=== PATIENT | female | born 1960 | race Caucasian/White ===

== ENCOUNTER 2016-09-27 15:14 | Inpatient (IN) | payer MEDICAID, OTHER ==
[~2016-09-27] VITALS: Ht 162.6 cm; Wt 73.0 kg
[~2016-09-27 15:14] MED LIST changes: +ADENOSINE 6 MG/2 ML VIAL ONE; -ASPI81TA2 PO; -ASPIRIN 81 MG TAB.CHEW PO SCH; -LISI-607 PO; -METO50TA7 PO; -METOPROLOL SUCCINATE 50 MG TAB.SR.24H PO SCH; -VANC1VIA2 IV; -VANCOMYCIN 1 GM VIAL IV SCH; -ZOLPIDEM TARTRATE 5 MG TABLET PO ONE
[2016-09-27] MEDS ORDERED: IV SET PRIMARY PUMP SET 1 EA INFUS.SET MC ONE (15:15)
[2016-09-27] MEDS ORDERED: IV NS 0.9% 1,000 ML ONE (15:15)
[2016-09-27] MEDS ORDERED: METOPROLOL TARTRATE INJ 5 MG/5 ML AMPUL ONE (15:20)
[2016-09-27] MEDS ORDERED: METOPROLOL TARTRATE 25 MG TABLET ONE (15:27)
[2016-09-27] MEDS ORDERED: METOPROLOL SUCCINATE 25 MG TAB.SR.24H PO ONE (15:30)
[2016-09-27] MEDS ORDERED: METOPROLOL TARTRATE INJ 5 MG/5 ML AMPUL IV ONE ×2 (15:30)
[2016-09-27] MEDS ORDERED: LISI-607 PO (15:38)
[2016-09-27] MEDS ORDERED: ASPI81TA2 PO (15:38)
[2016-09-27] MEDS ORDERED: VANC1VIA2 IV (15:38)
[2016-09-27 16:30] VITALS: BP 119/83
[2016-09-27 20:00] VITALS: BP 117/63
[2016-09-28] VITALS: BP 113/77
[2016-09-28 04:00] VITALS: BP 124/71
[2016-09-28 04:32] VITALS: BP 124/71
[2016-09-28 08:00] VITALS: BP 125/74
[2016-09-28] MEDS ORDERED: METO50TA7 PO (09:24)
[2016-09-28] MEDS ORDERED: METRONIDAZOLE 500MG/ NS 100ML 500 MG in PREMIX 1 EA IV SCH (09:30)
[2016-09-28] MEDS ORDERED: VANCOMYCIN 1 GM VIAL IV SCH (09:30)
[2016-09-28] MEDS ORDERED: ASPIRIN 81 MG TAB.CHEW PO SCH (09:37)
[2016-09-28] MEDS ORDERED: VANCOMYCIN 1.5 GM in IV D5W 500 ML IV SCH (10:00)
[2016-09-28 12:00] VITALS: BP 121/72
== END 2016-09-28 14:00 | disposition home or self-care (01) | DRG 201 ==
LOC: ER 16:00 → TELE1 17:06
PROVIDERS: ADMIT Internal Medicine; ATTEND Internal Medicine
DX: I47.1 Supraventricular tachycardia (principal); I10 Essential (primary) hypertension; Z90.11 Acquired absence of right breast and nipple; Z85.3 Personal history of malignant neoplasm of breast
CPT/HCPCS: 87081-TC; A4216; A4606; J0153; J3370; J3490; J7030; J7060; Z7610

== ENCOUNTER → 2016-09-27 | Emergency (ER) | payer MEDICAID ==
[~2016-09-27] VITALS: Ht 165.1 cm; Wt 73.0 kg
[~2016-09-27] MED LIST: ASPI81TA2 PO; ASPIRIN 81 MG TAB.CHEW PO SCH; CYCL5TAB PO; LISI-607 PO; METO50TA7 PO; METOPROLOL SUCCINATE 50 MG TAB.SR.24H PO SCH; VANC1VIA2 IV; VANCOMYCIN 1 GM VIAL IV SCH; ZOLPIDEM TARTRATE 5 MG TABLET PO ONE
[2016-09-27 14:07] LABS: CREATININE 0.6 mg/dL (0.6-1.3); POTASSIUM 3.6 mmol/L (3.5-5.1)
[2016-09-27 14:15] LABS: INR 0.89 (0.87-1.13); PROTHROMBIN TIME 9.3 SECS (9.5-12.7)
[2016-09-27 14:16] LABS: TROPONIN I 0.025 ng/mL (0.00-0.056)
[2016-09-27 14:37] VITALS: BP 130/78
[2016-09-27 14:55] LABS: BASOPHILS % (AUTO) 0.4 % (0.0-2.0); DIFF TOTAL % 100 %; EOSINOPHILS # (AUTO) 0.1 /CMM (0.0-0.7); EOSINOPHILS % (AUTO) 1.5 % (0.0-6.0); HEMATOCRIT 39 % (33-45); HEMOGLOBIN 13.1 g/dL (11.5-14.8); LYMPHOCYTES # (AUTO) 1.8 /CMM (0.8-4.8); LYMPHOCYTES % (AUTO) 30.7 % (20.0-44.0); MEAN CORPUSCULAR HEMOGLOBIN 31 PG (26.0-33.0); MEAN CORPUSCULAR HGB CONC 34 g/dl (31.0-36.0); MEAN CORPUSCULAR VOLUME 91 fL (82-100); MONOCYTES # (AUTO) 0.3 /CMM (0.1-1.30); MONOCYTES % (AUTO) 4.6 % (2.0-12.0); NEUTROPHILS # (AUTO) 3.6 /CMM (1.8-8.9); NEUTROPHILS % (AUTO) 62.8 % (43.0-81.0); PLATELET COUNT (AUTO) 364 /CMM (150-450); RED BLOOD CELL COUNT(AUTO) 4.27 MIL/uL (4.0-5.2); WHITE BLOOD COUNT (AUTO) 5.8 K/uL (4.3-11.0)
== END | disposition home or self-care (01) ==
LOC: ER 13:29 → MEDSG1 14:39 → ER 14:39 → UNDOADMIN 14:39
DX: I47.1 Supraventricular tachycardia (principal); I10 Essential (primary) hypertension; Z85.3 Personal history of malignant neoplasm of breast
CPT/HCPCS: 36415; 71010; 80048; 83735; 84443; 84484; 85025; 85730; 93005; 93307; 99285; A4606; Z7610; J3370

== ENCOUNTER 2019-06-15 08:29 | Emergency (ER) | payer OTHER ==
[~2019-06-15] VITALS: Ht 162.6 cm; Wt 74.4 kg
[~2019-06-15 08:29] MED LIST changes: -ADENOSINE 6 MG/2 ML VIAL ONE; +ASPI-1169 PO; -CYCL5TAB PO; +METO50TA7 PO; +VANC1VIA2 IV
--- NOTE | 2019-06-15 08:40 | NUR ---
MANDO, C/O ABD PAIN x 3 DAYS, +NAUSEA, -DIARRHEA. PATIENT A/OX4, BREATHING EVEN ANDUNLABORED, NO SOB NOTED, SON AT BEDSIDE. PER PATIENT, PAIN WAS WORSE YESTERDAY THAN TODAY. PATIENT CHANGED INTO GOWN, ATTACHED TO THE MONITOR.
[2019-06-15] MEDS ORDERED: ONDANSETRON HCL/PF 4 MG/2 ML VIAL ONE (08:55)
[2019-06-15] MEDS ORDERED: KETOROLAC TROMETHAMINE 15 MG/ML VIAL ONE (08:55)
[2019-06-15] MEDS ORDERED: ONDANSETRON HCL/PF 4 MG/2 ML VIAL IVP ONE (09:00)
[2019-06-15] MEDS ORDERED: IV NS 0.9% 500 ML BAG IV ONE (09:00)
[2019-06-15] MEDS ORDERED: KETOROLAC TROMETHAMINE INJ 30 MG/ML VIAL IV ONE (09:00)
[2019-06-15 09:02] LABS: BASOPHILS % (AUTO) 0.7 % (0.0-2.0); HEMATOCRIT 43 % (33-45); HEMOGLOBIN 14.3 g/dL (11.5-14.8); LYMPHOCYTES # (AUTO) 2.3 /CMM (0.8-4.8); LYMPHOCYTES % (AUTO) 40.7 % (20.0-44.0); MEAN CORPUSCULAR HGB CONC 33 g/dl (31.0-36.0); MEAN CORPUSCULAR VOLUME 96 fL (82-100); MONOCYTES # (AUTO) 0.4 /CMM (0.1-1.30); MONOCYTES % (AUTO) 7.3 % (2.0-12.0); NEUTROPHILS # (AUTO) 2.8 /CMM (1.8-8.9); NEUTROPHILS % (AUTO) 50.3 % (43.0-81.0); PLATELET COUNT (AUTO) 267 /CMM (150-450); RED BLOOD CELL COUNT(AUTO) 4.51 MIL/uL (4.0-5.2); WHITE BLOOD COUNT (AUTO) 5.6 K/uL (4.3-11.0)
[2019-06-15 09:13] LABS: CALCIUM, SERUM 9.1 mg/dL (8.5-10.1); CREATININE 0.6 mg/dL (0.6-1.3); POTASSIUM 4.2 mmol/L (3.5-5.1)
[2019-06-15 09:19] LABS: ALBUMIN 4.2 g/dL (3.4-5.0); BILIRUBIN,DIRECT 0.1 mg/dL (0.0-0.2); BILIRUBIN,TOTAL 0.3 mg/dL (0.2-1.0); TOTAL PROTEIN, SERUM 7.9 g/dL (6.4-8.2)
--- NOTE | 2019-06-15 09:54 | NUR ---
Ambulatory with a steady gait. IV removed. Catheter intact and site benign. Pressure and 4x4 applied to site. No bleeding noted.Patient discharged to home in stable condition. Written and verbal after care instructions given. Patient verbalizes understanding of instruction.
[2019-06-15 09:55] VITALS: BP 160/92
== END 2019-06-15 09:55 | disposition home or self-care (01) ==
LOC: ER 08:33
DX: K82.8 Other specified diseases of gallbladder (principal); I10 Essential (primary) hypertension; Z90.11 Acquired absence of right breast and nipple; Z79.82 Long term (current) use of aspirin; Z79.899 Other long term (current) drug therapy
CPT/HCPCS: 36415; 76705; 80048; 80076; 83690; 85025; 96374; 96375; 99284; J1885; J2405; J7040; J7030

== ENCOUNTER 2021-03-17 08:01 | Emergency (ER) | payer MEDICAID, OTHER ==
[~2021-03-17] VITALS: Ht 162.6 cm; Wt 77.1 kg
--- NOTE | 2021-03-17 08:15 | NUR ---
BIBS FOR C/O UPPER ABDOMINAL AND LEFT FLANK PAIN X 1 WEEK. RATES PAIN 6/10. ABDOMNE SOFT AND NON-DISTENDED. RESPIRATION REGULAR AND UNLABORED. WILL CONTINUE TO MONITOR THE PATIENT.
[2021-03-17] MEDS ORDERED: OMEP20CA15 PO (08:39)
[2021-03-17] MEDS ORDERED: LISI-768 PO (08:39)
[2021-03-17] MEDS ORDERED: METO25TA4 PO (08:39)
[2021-03-17 08:40] LABS: BASOPHILS % (AUTO) 0.4 % (0.0-2.0); CALCIUM, SERUM 9.2 mg/dL (8.5-10.1); CREATININE 0.7 mg/dL (0.6-1.3); EOSINOPHILS % (AUTO) 0.8 % (0.0-6.0); HEMATOCRIT 42 % (33-45); MEAN CORPUSCULAR HGB CONC 33 g/dl (31.0-36.0); MEAN CORPUSCULAR VOLUME 96 fL (82-100); MONOCYTES # (AUTO) 0.3 K/uL (0.1-1.30); MONOCYTES % (AUTO) 6.4 % (2.0-12.0); NEUTROPHILS # (AUTO) 2.9 K/uL (1.8-8.9); NEUTROPHILS % (AUTO) 55.4 % (43.0-81.0); PLATELET COUNT (AUTO) 265 K/uL (150-450); POTASSIUM 4.1 mmol/L (3.5-5.1); WHITE BLOOD COUNT (AUTO) 5.3 K/uL (4.3-11.0)
[2021-03-17] MEDS ORDERED: ATOR10TA PO (08:40)
[2021-03-17] MEDS ORDERED: DULO30CA52 PO (08:40)
[2021-03-17] MEDS ORDERED: LIPA1CAP15 PO (08:40)
[2021-03-17] MEDS ORDERED: ANAS1TAB50 PO (08:40)
[2021-03-17 08:46] LABS: ALBUMIN 4.4 g/dL (3.4-5.0); BILIRUBIN,DIRECT 0.1 mg/dL (0.0-0.2); BILIRUBIN,TOTAL 0.4 mg/dL (0.2-1.0)
[2021-03-17 08:53] LABS: BILIRUBIN,URINE NEGATIVE (NEGATIVE); COLOR,URINE YELLOW (YELLOW); LEUKOCYTE ESTERASE ,URINE NEGATIVE (NEGATIVE); NITRITE, URINE NEGATIVE (NEGATIVE); PROTEIN,URINE NEGATIVE (NEGATIVE); UGLUCOSE NEGATIVE (NEGATIVE); UROBILINOGEN,URINE 0.2 EU/dL (0.2)
[2021-03-17] MEDS ORDERED: MAG HYDROX/AL HYDROX/SIMETH 30 ML UDC PO ONE (09:30)
[2021-03-17] MEDS ORDERED: FAMOTIDINE/PF INJ 20 MG/2 ML VIAL IV ONE ×2 (09:30→10:06)
[2021-03-17] MEDS ORDERED: IV NS 0.9% 1,000 ML BAG IV ONE (09:30)
[2021-03-17] MEDS ORDERED: LIDOCAINE VISCOUS 2% UD 15 ML UDC MM ONE (09:30)
[2021-03-17] MEDS ORDERED: ONDANSETRON HCL/PF 4 MG/2 ML VIAL IVP ONE (09:30)
--- NOTE | 2021-03-17 09:32 | NUR ---
[employer] TECHNICIAN AT THE BEDSIDE
[2021-03-17 09:44] LABS: BACTERIA,URINE Rare /HPF (None Seen); RBC,URINE 0-2 /HPF (0-2); SQUAMOUS EPITHELIAL CELL,UR Few /HPF (None Seen); WBC,URINE 0-2 /HPF (0-3)
[2021-03-17] MEDS ORDERED: ONDANSETRON HCL/PF 4 MG/2 ML VIAL ONE (10:06)
[2021-03-17] MEDS ORDERED: LIDOCAINE VISCOUS 2% UD 15 ML UDC ONE (10:06)
[2021-03-17] MEDS ORDERED: MAG HYDROX/AL HYDROX/SIMETH 30 ML UDC ONE (10:06)
[2021-03-17] MEDS ORDERED: ONDA4TAB5 PO (10:55)
[2021-03-17] MEDS ORDERED: FAMO-131 PO (10:55)
[2021-03-17 11:34] VITALS: BP 127/85
--- NOTE | 2021-03-17 11:34 | NUR ---
Patient discharged to home in stable condition. Written and verbal after care instructions given. Patient verbalizes understanding of instruction.
== END 2021-03-17 11:35 | disposition home or self-care (01) ==
LOC: ER 08:05
DX: R10.11 Right upper quadrant pain (principal); R11.2 Nausea with vomiting, unspecified; I10 Essential (primary) hypertension; Z90.11 Acquired absence of right breast and nipple; Z79.899 Other long term (current) drug therapy; Z79.82 Long term (current) use of aspirin
CPT/HCPCS: 36415; 76705; 80048; 80076; 81001; 83690; 85025; 96361; 96374; 96375; 99284; J2405; J3490; J7030